=== PATIENT | female | born 1950 | race Caucasian/White ===

== ENCOUNTER 2022-03-18 14:46 | Emergency (ER) | payer MEDICARE ==
[2022-03-18] MEDS ORDERED: Ondansetron PF 4 MG/2 ML Vial ONE ×2 (16:51→17:58)
[2022-03-18] MEDS ORDERED: Fentanyl 100 MCG/2 ML VIAL ONE (17:35)
[2022-03-18] MEDS ORDERED: PROPOFOL 20 ML ONE (17:56)
[2022-03-18] MEDS ORDERED: Rocuronium Bromide 10 MG/ML (10ML VIAL) ONE (17:56)
[2022-03-18] MEDS ORDERED: Dexamethasone 4 mg/ml Vial ONE (17:58)
[2022-03-18] MEDS ORDERED: Succinylcholine 200 MG/10 ml SYRINGE FS ONE (17:58)
[2022-03-18] MEDS ORDERED: Lidocaine 1% PF 5 ML VIAL ONE (18:01)
== END 2022-03-18 18:08 | disposition admitted as inpatient to this hospital (09) ==
LOC: CSHERS 14:46
PROC: 0DC58ZZ Extirpation of Matter from Esophagus, Via Natural or Artificial Opening Endoscopic (ICD-10-PCS; principal; 2022-03-18)
DX: K22.2 Esophageal obstruction (principal)
CPT/HCPCS: 84484; 93005; 96374; 96375; J1100; J2405; J2704; J3010